=== PATIENT | female | born 1990 | race Caucasian/White ===

== ENCOUNTER 2022-05-11 23:44 | Inpatient (IN) | payer OTHER ==
[~2022-05-11] VITALS: Ht 165.1 cm; Wt 104.5 kg
[2022-05-11] MEDS ORDERED: ceFAZolin 2 GM/D5W 50 ML IV BAG As Ordered ONE (23:50)
[2022-05-11] MEDS ORDERED: AZITHROMYCIN INJ 500MG VIAL As Ordered ONE (23:51)
[2022-05-12] VITALS (7 sets, daily range): BP systolic 121–175; BP diastolic 73–97
[2022-05-12 00:26] LABS: CORD GAS ABE A -6.3; CORD GAS HCO3 A 24.4 MEQ/L; CORD GAS PCO2 A 74.6 mmHg; CORD GAS PH A 7.133 UNITS; CORD GAS PO2 A 10.2 mmHg; CORD GAS TCO2 A 26.7 MEQ/L
[2022-05-12 00:29] LABS: CORD GAS ABE V -5.4; CORD GAS O2 SAT V 52.1 %; CORD GAS PH V 7.231 UNITS; CORD GAS PO2 V 23.5 mmHg; CORD GAS TCO2 V 24.7 MEQ/L
[2022-05-12] MEDS ORDERED: propofoL 200 MG/20 ML VIAL As Ordered ONE ×2 (00:53→01:23)
[2022-05-12] MEDS ORDERED: KETOROLAC 60MG 2ML VIAL As Ordered ONE (00:53)
[2022-05-12] MEDS ORDERED: OXYTOCIN 30UNITS IN 0.9% NaCl 500ML IV BAG As Ordered ONE (00:53)
[2022-05-12] MEDS ORDERED: MIDAZOLAM INJ 2MG/2ML VIAL As Ordered ONE (00:53)
[2022-05-12] MEDS ORDERED: MORPHINE PRES-FREE INJ 10 MG/10 ML VIAL As Ordered ONE (00:53)
[2022-05-12] MEDS ORDERED: ONDANSETRON 4MG 2ML VIAL As Ordered ONE (00:53)
[2022-05-12] MEDS ORDERED: SUCCINYLCHOLINE 100MG/5ML SYRINGE As Ordered ONE (00:53)
[2022-05-12] MEDS ORDERED: ROCURONIUM BROMIDE 50MG/5ML VIAL As Ordered ONE (00:53)
[2022-05-12] MEDS ORDERED: fentaNYL 100 MCG/2 ML INJECTION As Ordered ONE (00:53)
[2022-05-12] MEDS ORDERED: ACETAMINOPHEN 1000MG 100ML IV BAG As Ordered ONE (00:54)
[2022-05-12] MEDS ORDERED: SUGAMMADEX SODIUM 500 MG/5 ML VIAL (BRIDION) As Ordered ONE (00:59)
[2022-05-12] MEDS ORDERED: BUPIVACAINE HCL 0.25% 10ML VIAL As Ordered ONE (01:26)
[2022-05-12] MEDS ORDERED: BUPIVACAINE LIPOSOME/PF 1.3% 20ML VIAL (13.3MG/ML)(EXPAREL) As Ordered ONE (01:27)
[2022-05-12] MEDS ORDERED: METOCLOPRAMIDE INJ 10MG/2ML VIAL IV PRN (02:25)
[2022-05-12] MEDS ORDERED: ONDANSETRON 4MG 2ML VIAL IV PRN ×2 (02:25→02:30)
[2022-05-12] MEDS ORDERED: LR 1,000 ML IV SCH (02:25)
[2022-05-12] MEDS ORDERED: MEPERIDINE INJ 25 MG/ML VIAL IV PRN (02:25)
[2022-05-12] MEDS ORDERED: oxyCODONE 5MG TAB PO PRN (02:25)
[2022-05-12] MEDS ORDERED: MORPHINE 2 MG/ML 1ML VIAL IV PRN (02:25)
[2022-05-12] MEDS ORDERED: fentaNYL 100 MCG/2 ML INJECTION IV PRN (02:25)
[2022-05-12] MEDS ORDERED: OXYTOCIN DRIP 30 UNITS in IV 1 EA IV SCH (02:30)
[2022-05-12] MEDS ORDERED: METHYLERGONOVINE MALEATE 0.2 MG/ML VIAL (J2210) IM PRN (02:30)
[2022-05-12] MEDS ORDERED: ANUSOL HC CREAM 30GM TOP PRN (02:30)
[2022-05-12] MEDS ORDERED: PERCOCET 5MG/325MG TAB PO PRN ×2 (02:30)
[2022-05-12] MEDS ORDERED: SIMETHICONE 80MG CHEW TAB PO PRN (02:30)
[2022-05-12] MEDS ORDERED: RHOGAM 300MCG (1500IU) INJ IM SCH (02:30)
[2022-05-12] MEDS ORDERED: MORPHINE 4 MG/ML 1ML VIAL IV PRN (02:30)
[2022-05-12] MEDS ORDERED: ACETAMINOPHEN 500 MG TAB PO PRN (02:30)
[2022-05-12 02:41] LABS: HEMATOCRIT 33.5 % (36.0-47.0); HEMOGLOBIN 11.2 g/dl (12.0-15.5); MEAN CORPUSCULAR HEMOGLOBIN 29.9 pg (27.0-33.0); MEAN CORPUSCULAR HGB CONC 33.4 g/dl (32.0-36.5); MEAN CORPUSCULAR VOLUME 89.6 fl (80.0-96.0); PLATELET COUNT, AUTOMATED 296 10^3/uL (150-450); RED BLOOD COUNT 3.74 10^6/uL (4.00-5.40); WHITE BLOOD COUNT 24.2 10^3/uL (4.0-10.0)
[2022-05-12] MEDS ORDERED: ceFAZolin SOD 2 GM in IV 1 EA IV ONE (03:00)
[2022-05-12] MEDS ORDERED: AZITHROMYCIN INJ 500 MG, VIAL MATE ADAPTER 1 EACH in NS 250 ML IV ONE (03:00)
[2022-05-12] MEDS: LR 1,000 ML IV SCH ×2 (05:30→13:23)
[2022-05-12] MEDS: KETOROLAC 30 MG/ML 1ML VIAL IV SCH ×3 (06:54→19:20)
[2022-05-12] MEDS ORDERED: PREN1TAB26 PO (09:08)
[2022-05-12] MEDS ORDERED: HOME MED LIST COMPLETE! XX SCH (09:10)
[2022-05-12] MEDS: DOCUSATE SODIUM 100MG CAPSULE PO SCH ×2 (11:21→20:57)
[2022-05-12] MEDS: PRENATAL VITAMINS CHEWABLE TABLET PO SCH (11:21)
[2022-05-12] MEDS: ceFAZolin SOD 2 GM in IV 1 EA IV SCH ×3 (11:23→22:31)
[2022-05-12] MEDS ORDERED: COLA100C5 PO (11:33)
[2022-05-12] MEDS ORDERED: IBUP80TA PO (11:33)
[2022-05-12] MEDS ORDERED: PERCOCET PO (11:34)
[2022-05-13 02:05] VITALS: BP 122/84
[2022-05-13] MEDS: IBUPROFEN 800 MG TAB PO SCH ×2 (03:00→15:43)
[2022-05-13] MEDS: ceFAZolin SOD 2 GM in IV 1 EA IV SCH (04:58)
[2022-05-13 05:51] LABS: HEMATOCRIT 25.9 % (36.0-47.0); HEMOGLOBIN 8.7 g/dl (12.0-15.5); MEAN CORPUSCULAR HEMOGLOBIN 29.7 pg (27.0-33.0); MEAN CORPUSCULAR HGB CONC 33.6 g/dl (32.0-36.5); MEAN CORPUSCULAR VOLUME 88.4 fl (80.0-96.0); PLATELET COUNT, AUTOMATED 228 10^3/uL (150-450); RED BLOOD COUNT 2.93 10^6/uL (4.00-5.40); WHITE BLOOD COUNT 18.1 10^3/uL (4.0-10.0)
[2022-05-13 05:59] VITALS: BP 133/76
[2022-05-13] MEDS: DOCUSATE SODIUM 100MG CAPSULE PO SCH (10:08)
[2022-05-13] MEDS: PRENATAL VITAMINS CHEWABLE TABLET PO SCH (10:08)
[2022-05-13 10:11] VITALS: BP 118/70
[2022-05-14] MEDS ORDERED: MEASLES,MUMPS,RUBELLA VACCINE INJ (MMR-II) SC.IMMUN ONE (09:00)
== END 2022-05-13 16:03 | disposition home or self-care (01) | DRG 540 ==
LOC: M LDI 23:44
PROVIDERS: ADMIT Obstetrics & Gynecology; ATTEND Obstetrics & Gynecology
PROC: 10D00Z1 Extraction of Products of Conception, Low, Open Approach (ICD-10-PCS; principal; 2022-05-12)
DX: O42.013 Preterm premature rupture of membranes, onset of labor within 24 hours of rupture, third trimester (principal); O40.3XX0 Polyhydramnios, third trimester, not applicable or unspecified; Z3A.32 32 weeks gestation of pregnancy; O35.13X0 Maternal care for (suspected) chromosomal abnormality in fetus, Trisomy 21, not applicable or unspecified; Z37.0 Single live birth; O35.FXX0 Maternal care for other (suspected) fetal abnormality and damage, fetal musculoskeletal anomalies of trunk, not applicable or unspecified